=== PATIENT | female | born 1950 | race Caucasian/White ===

== ENCOUNTER → 2017-03-16 | Outpatient (CLI) | payer OTHER ==
[2017-03-16 13:30] LABS: BASOPHILS % (AUTO) 0.8 % (0.2-1.0); EOSINOPHILS # (AUTO) 0.1 x10^3/uL (0.0-0.2); EOSINOPHILS % (AUTO) 1.1 % (0.9-2.9); HEMOGLOBIN 13.1 g/dL (12.0-16.0); LYMPHOCYTES # (AUTO) 1.6 X10^3/uL (1.3-2.9); LYMPHOCYTES % (AUTO) 29.5 % (21.0-51.0); MEAN CORPUSCULAR HEMOGLOBIN 31.1 pg (27.0-34.0); MEAN CORPUSCULAR HGB CONC 33.6 g/dL (33.0-35.0); MEAN CORPUSCULAR VOLUME 92.4 fL (80.0-100.0); MEAN PLATELET VOLUME 8.3 fL (7.4-11.0); MONOCYTES # (AUTO) 0.4 x10^3/uL (0.3-0.8); NEUTROPHILS # (AUTO) 3.3 x10^3/uL (2.2-4.8); NEUTROPHILS % (AUTO) 61.6 % (42.0-75.0); PLATELET COUNT 200 X10^3/uL (150.0-450.0); RED BLOOD COUNT 4.22 X10^6/uL (3.5-5.4); WHITE BLOOD COUNT 5.4 X10^3/uL (3.6-10.0)
[2017-03-16 13:32] LABS: BILIRUBIN,URINE NEGATIVE (NEGATIVE); BLOOD/HEMOGLOBIN,URINE 1+ (NEGATIVE); GLUCOSE, URINE NEGATIVE (NEGATIVE); KETONES,URINE NEGATIVE (NEGATIVE); LEUKOCYTE ESTERASE ,URINE NEGATIVE (NEGATIVE); NITRITES,URINE NEGATIVE (NEGATIVE); PROTEIN,URINE 1+ (NEGATIVE); UROBILINOGEN,URINE NORMAL (NORMAL)
[2017-03-16 13:43] LABS: ALANINE AMINOTRANSFERASE 16 Units/L (12-78); ALBUMIN 3.5 g/dL (3.4-5.0); ALKALINE PHOSPHATASE 75 Units/L (46-116); ASPARTATE AMINO TRANSFERASE 26 Units/L (15-37); BLOOD UREA NITROGEN 17 mg/dL (7-18); CALCIUM 9.4 mg/dL (8.5-10.1); CARBON DIOXIDE 32.7 mmol/L (21-32); CHLORIDE 106 mmol/L (98-107); CREATININE 0.75 mg/dL (0.55-1.02); GLUCOSE 93 mg/dL (65-99); SODIUM 142 mmol/L (136-145); TOTAL PROTEIN 7.2 g/dL (6.4-8.2); eGFR BLACK RACES > 60 (>60); eGFR NON BLACK RACES > 60 (>60)
[2017-03-16 13:49] LABS: APPEARANCE,URINE CLEAR (CLEAR); BACTERIA,URINE TRACE /HPF (NEGATIVE); COLOR,URINE YELLOW (YELLOW); RBC,URINE RARE /HPF (NEGATIVE); SQUAMOUS EPITHELIAL CELL,UR NUMEROUS /HPF (NEGATIVE)
== END ==
LOC: LAB 12:59
PROVIDERS: ATTEND Internal Medicine Rheumatology
DX: J32.8 Other chronic sinusitis (principal); Z79.51 Long term (current) use of inhaled steroids; M79.1 Myalgia; J32.0 Chronic maxillary sinusitis; M31.30 Wegener's granulomatosis without renal involvement; F95.8 Other tic disorders
CPT/HCPCS: 36415; 80053; 81001; 83516; 85025; 86021; 86140

== ENCOUNTER → 2017-07-05 | Outpatient (CLI) | payer OTHER ==
[2017-07-05 11:36] LABS: ALANINE AMINOTRANSFERASE 15 Units/L (12-78); ALBUMIN 3.7 g/dL (3.4-5.0); ALKALINE PHOSPHATASE 73 Units/L (46-116); ASPARTATE AMINO TRANSFERASE 26 Units/L (15-37); BLOOD UREA NITROGEN 18 mg/dL (7-18); CALCIUM 9.3 mg/dL (8.5-10.1); CARBON DIOXIDE 31.7 mmol/L (21-32); CHLORIDE 104 mmol/L (98-107); SODIUM 141 mmol/L (136-145); TOTAL PROTEIN 7.1 g/dL (6.4-8.2); eGFR BLACK RACES > 60 (>60); eGFR NON BLACK RACES > 60 (>60)
[2017-07-05 11:41] LABS: BASOPHILS % (AUTO) 0.8 % (0.2-1.0); EOSINOPHILS # (AUTO) 0.1 x10^3/uL (0.0-0.2); EOSINOPHILS % (AUTO) 1.4 % (0.9-2.9); HEMATOCRIT 39.9 % (36.0-47.0); HEMOGLOBIN 13.2 g/dL (12.0-16.0); LYMPHOCYTES # (AUTO) 1.2 X10^3/uL (1.3-2.9); LYMPHOCYTES % (AUTO) 23.3 % (21.0-51.0); MEAN CORPUSCULAR HEMOGLOBIN 30.2 pg (27.0-34.0); MEAN CORPUSCULAR HGB CONC 33.2 g/dL (33.0-35.0); MEAN CORPUSCULAR VOLUME 91.1 fL (80.0-100.0); MONOCYTES # (AUTO) 0.7 x10^3/uL (0.3-0.8); MONOCYTES % (AUTO) 12.6 % (0.0-13.0); NEUTROPHILS # (AUTO) 3.2 x10^3/uL (2.2-4.8); NEUTROPHILS % (AUTO) 61.9 % (42.0-75.0); PLATELET COUNT 194 X10^3/uL (150.0-450.0); RED BLOOD COUNT 4.38 X10^6/uL (3.5-5.4); RED CELL DISTRIBUTION WIDTH 14.1 % (11.6-16.5); WHITE BLOOD COUNT 5.2 X10^3/uL (3.6-10.0)
== END ==
LOC: LAB 10:44
PROVIDERS: ATTEND Internal Medicine Rheumatology
DX: G57.01 Lesion of sciatic nerve, right lower limb (principal); F95.8 Other tic disorders; M31.30 Wegener's granulomatosis without renal involvement; M79.1 Myalgia; Z79.51 Long term (current) use of inhaled steroids
CPT/HCPCS: 36415; 80053; 83516; 85025; 86021; 86140

== ENCOUNTER 2021-02-04 10:14 | Observation (INO) ==
[2021-02-04] MEDS ORDERED: TUSSIONEX PENNKINETIC SUSP PO PRN (12:19)
[2021-02-04] MEDS ORDERED: NS 1/2 1000 ML IV 1,000 ML IV ONE (12:29)
[2021-02-04] MEDS: LEVAQUIN PREMIX IV 500 MG 500 MG/100 ML BAG IV SCH (12:46)
[2021-02-04] MEDS: VSL#3 PO SCH (12:46)
[2021-02-04] MEDS: NS 1/2 1000 ML IV 1,000 ML IV SCH (12:46)
[2021-02-04] MEDS: ROBITUSSIN DM PO SCH ×4 (12:46→20:52)
[2021-02-04] MEDS ORDERED: XANAX PO PRN (13:07)
[2021-02-04 13:12] LABS: BASOPHILS % (AUTO) 0.3 % (0.2-1.0); EOSINOPHILS # (AUTO) 0.1 x10^3/uL (0.0-0.2); EOSINOPHILS % (AUTO) 1.2 % (0.9-2.9); HEMATOCRIT 39.9 % (36.0-47.0); HEMOGLOBIN 13.4 g/dL (12.0-16.0); LYMPHOCYTES # (AUTO) 1.3 X10^3/uL (1.3-2.9); LYMPHOCYTES % (AUTO) 13.2 % (21.0-51.0); MEAN CORPUSCULAR HEMOGLOBIN 29.9 pg (27.0-34.0); MEAN CORPUSCULAR HGB CONC 33.5 g/dL (33.0-35.0); MEAN CORPUSCULAR VOLUME 89.4 fL (80.0-100.0); MEAN PLATELET VOLUME 7.9 fL (7.4-11.0); MONOCYTES % (AUTO) 10.4 % (0.0-13.0); NEUTROPHILS # (AUTO) 7.3 x10^3/uL (2.2-4.8); NEUTROPHILS % (AUTO) 74.9 % (42.0-75.0); PLATELET COUNT 310 X10^3/uL (150.0-450.0); RED BLOOD COUNT 4.47 X10^6/uL (3.5-5.4); RED CELL DISTRIBUTION WIDTH 14.7 % (11.6-16.5); WHITE BLOOD COUNT 9.7 X10^3/uL (3.6-10.0)
[2021-02-04 13:21] VITALS: BMI 17.6
[2021-02-04 13:23] LABS: ALANINE AMINOTRANSFERASE 18 Units/L (12-78); ALBUMIN 3.3 g/dL (3.4-5.0); ALKALINE PHOSPHATASE 114 Units/L (46-116); ASPARTATE AMINO TRANSFERASE 26 Units/L (15-37); BLOOD UREA NITROGEN 9 mg/dL (7-18); CALCIUM 9.5 mg/dL (8.5-10.1); CARBON DIOXIDE 30.4 mmol/L (21-32); CHLORIDE 106 mmol/L (98-107); COR CA(FOR HYPOALB) 10.1 mg/dL (8.5-10.1); CREATININE 0.61 mg/dL (0.55-1.02); SODIUM 143 mmol/L (136-145); TOTAL PROTEIN 7.2 g/dL (6.4-8.2); eGFR NON BLACK RACES > 60 (>60)
[2021-02-04] MEDS: DUONEB 0.5 MG/3 MG (3 mL) NEB SCH ×3 (14:48→20:56)
--- NOTE | 2021-02-04 14:48 | RAD ---
HISTORYPNEUMONIA.STUDYCHEST x-ray, PA/LAT ADULTCOMPARISONX-ray 11/22/2020FINDINGSCavitary lesion in the left lower lobe has increased in size since prior study. New rounded opacity is seen in the right infrahilar region that could be due to the same process. Cavitary lesion in the left lung apex is probably similar to prior study. Findings could be due to cavitary pneumonia/lung abscesses. Fungal infection or tuberculosis should be given consideration as should cavitary neoplasia.Heart is normal in size. No pneumothorax or pleural effusion is seen.IMPRESSIONProbable mild worsening of cavitary lung disease.Electronically signed by: Michael Badillo (Feb 04, 2021 14:46:17)
[2021-02-04] MEDS ORDERED: SALINE 3% 15 ML NEB TX NEB ONE (14:54)
[2021-02-04] MEDS ORDERED: SALINE 3% 15 ML NEB TX ONE (15:20)
[2021-02-04] MEDS ORDERED: XANAX PO ONE (15:42)
[2021-02-04] MEDS ORDERED: POTASSIUM CHL 40 MEQ/NS 0.45% 500 ML IV PRN (18:59)
[2021-02-04] MEDS ORDERED: K-RIDER 10 MEQ/NS 100 ML 10 MEQ/100 ML BAG IV PRN (18:59)
[2021-02-04] MEDS ORDERED: MICRO K EXTEN CAP 10 MEQ PO PRN (18:59)
[2021-02-04] MEDS ORDERED: POTASSIUM CHLORIDE LIQ 20 MEQ UDC PO PRN (18:59)
[2021-02-04] MEDS ORDERED: KLOR-CON PO PRN (18:59)
[2021-02-04] MEDS ORDERED: POTASSIUM CHL 60 MEQ/NS 0.45% 500 ML IV PRN (18:59)
[2021-02-04] MEDS ORDERED: K-DUR TAB 20 MEQ PO PRN (18:59)
[2021-02-04] MEDS ORDERED: SEROquel TAB 25 mg PO ONE (20:17)
[2021-02-04] MEDS ORDERED: PERCOCET TAB 5/325 MG PO ONE (20:18)
[2021-02-04] MEDS ORDERED: SINEMET (PLAIN) 25/100 MG PO ONE (20:18)
[2021-02-04] MEDS ORDERED: ULTRAM PO PRN (20:49)
[2021-02-04] MEDS ORDERED: PERCOCET TAB 5/325 MG PO PRN (20:49)
--- NOTE | 2021-02-04 20:49 | DR.H&P ---
H&P - History & Physical for Day of: H&P Date: 02/04/21 - Chief Complaint Chief Complaint: COUGH, SOB, WEAKNESS - History of Present Illness History of Present Illness: IS A 70 YEAR OLD PATIENT OF OURS. SHE PRESENTED TO THE OFFICE WITH COMPLAINTS OF NON-PRODUCTIVE COUGH, SHORTNESS OF BREATH, AND GENERALIZED WEAKNESS. SHE REPORTS THAT SYMPTOMS STARTED ABOUT A WEEK AGO AND HAVE PROGRESSIVELY GOTTEN WORSE. PATIENT HAS A PMH OF WAGNERS DISEASE FOR WHICH SHE IS AT INCREASED RISK OF PNEUMONIA. SHE HAS TAKEN CHEMOTHERAPY FOR SAID DISEASE. SHE WAS ADMITTED TO THE HOSPITAL FOR FURTHER EVALUATION AND TREATMENT OF PNEUMONIA AND GENERALIZED WEAKNESS. ON ARRIVAL TO THE HOSPITAL, VITALS WERE 98.5-88-18-96%-141/82. LABS WERE OBTAINED. POTASSIUM 3.4, ALBUMIN 3.3. OTHERWISE, SHE IS HEMODYNAMICALLY STABLE. COVID 19, INFLUENZA, AND RSV NEGATIVE. BLOOD CULTURES WERE SET UP. A CHEST XRAY WAS OBTAINED AND REVEALED: Cavitary lesion in the left lower lobe has increased in size since prior study. New rounded opacity is seen in the right infrahilar region that could be due to the same process. Cavitary lesion in the left lung apex is probably similar to prior study. Findings could be due to cavitary pneumonia/lung abscesses. Fungal infection or tuberculosis should be given consideration as should cavitary neoplasia. SHE WAS STARTED ON 1/2NS AT 75 ML/HR, LEVAQUIN 500MG IV DAILY, DUONEBS QID, TUSSIONEX 5ML PO Q12H PRN, ROBITUSSIN DM 10ML PO QID, VSL #3 2 CAPS PO DAILY, XANAX 0.25MG PO BID PRN. WE WILL REVIEW HER HOME MEDICATIONS WHEN THEY ARE AVAILABLE TO US. OTHERWISE, WE PLAN OT FOLLOW UP WITH AM LABS AND CONTINUE TO MONITOR. TIME SPENT ON CLINICAL ASSESSMENT, REVIEWING LABS AND IMAGING, DECISION MAKING, AND DOCUMENTATION GREATER THAN 75 MINUTES. - Past Medical History Past Medical History: Anxiety Additional Medical History: HARPER'S DISEASE. - Past Surgical History Surgical History: Hysterectomy - Family History Family Medical History: Coronary Artery Disease, Hypertension - Social History Does patient currently use any type of tobacco product: No Have you used tobacco products in the last 12 months: No Does any household member use tobacco: No Alcohol Use: None Drug Use: None - Medications Home Medications: No Known Drug Allergies Allergy (Verified 11/18/20 10:53) CONTINUE taking the following medications gabapentin 300 mg PO HS 02/04/21 [History] montelukast 10 mg PO DAILY 02/04/21 [History] oxycodone-acetaminophen 1 tab PO QID PRN 02/04/21 [History] rivaroxaban [Xarelto] 10 mg PO DAILY 02/04/21 [History] tramadol 50 mg PO TID PRN 02/04/21 [History] voriconazole 200 mg PO BID 02/04/21 [History] - Review of Systems Constitutional: Weakness Eyes: No Symptoms Reported ENT: No Symptoms Reported Respiratory: See HPI, Cough, Shortness of Breath, SOB with Excertion Cardiovascular: No Symptoms Reported Gastrointestinal: No Symptoms Reported Genitourinary: No Symptoms Reported Musculoskeletal: No Symptoms Reported Skin: No Symptoms Reported Neurological: Weakness - Physical Exam Vital Signs: Temperature 98.5 F Pulse Rate [Left Brachial] 95 Pulse Rate 108 Respiratory Rate 18 Blood Pressure [Left Arm] 134/60 Blood Pressure 154/67 O2 Sat by Pulse Oximetry 93 Oriented: Normal Eyes: Normal Ear: Normal Nose: Normal Throat: Normal Respiratory: Diminished Throughout, Rhonchi Throughout Cardiovascular: Normal : Normal Auscultation: Bowel Sounds: Normal Palpation: Normal Tenderness: Normal Skin: Normal Musculoskeletal: Normal Psychiatric: Normal Mood Description: Calm Affect: Normal Speech Pattern: Clear - Assessment/Plan (1) Pneumonia Qualifiers: Pneumonia type: due to unspecified organism Laterality: left Lung location: lower lobe of lung Qualified Code(s): J18.9 - Pneumonia, unspecified organism Status: Acute Plan: ADMIT, 1/2NS AT 75 ML/HR, LEVAQUIN 500MG IV DAILY, DUONEBS QID, TUSSIONEX 5ML PO Q12H PRN, ROBITUSSIN DM 10ML PO QID, VSL #3 2 CAPS PO DAILY, XANAX 0.25MG PO BID PRN. (2) Hilton's granulomatosis Qualifiers: Granulomatosis renal involvement: unspecified whether renal involvement Qualified Code(s): M31.30 - Hilton's granulomatosis without renal involvement Status: Acute - Allergies Allergies/Adverse Reactions: Allergies Allergy/AdvReac Type Severity Reaction Status Date / Time No Known Drug Allergies Allergy Verified 11/18/20 10:53
[2021-02-04] MEDS ORDERED: NEURONTIN CAP 300 MG PO SCH (21:00)
[2021-02-04] MEDS ORDERED: SINGULAIR TAB 10 MG PO SCH (21:00)
[2021-02-04] MEDS: VORICONAZOLE 200 MG PO SCH (21:45)
[2021-02-05] MEDS ORDERED: NS 1/2 1000 ML IV 1,000 ML IV ONE (03:10)
[2021-02-05] MEDS: NS 1/2 1000 ML IV 1,000 ML IV SCH (03:15)
[2021-02-05 05:21] LABS: BASOPHILS # (AUTO) 0.1 X10^3/uL (0.0-0.1); BASOPHILS % (AUTO) 0.9 % (0.2-1.0); EOSINOPHILS # (AUTO) 0.1 x10^3/uL (0.0-0.2); EOSINOPHILS % (AUTO) 1.6 % (0.9-2.9); HEMATOCRIT 36.1 % (36.0-47.0); HEMOGLOBIN 12.1 g/dL (12.0-16.0); LYMPHOCYTES # (AUTO) 1.7 X10^3/uL (1.3-2.9); LYMPHOCYTES % (AUTO) 27.9 % (21.0-51.0); MEAN CORPUSCULAR HEMOGLOBIN 29.7 pg (27.0-34.0); MEAN CORPUSCULAR HGB CONC 33.5 g/dL (33.0-35.0); MEAN CORPUSCULAR VOLUME 88.7 fL (80.0-100.0); MEAN PLATELET VOLUME 7.7 fL (7.4-11.0); MONOCYTES # (AUTO) 0.7 x10^3/uL (0.3-0.8); MONOCYTES % (AUTO) 11.2 % (0.0-13.0); NEUTROPHILS # (AUTO) 3.5 x10^3/uL (2.2-4.8); NEUTROPHILS % (AUTO) 58.4 % (42.0-75.0); PLATELET COUNT 257 X10^3/uL (150.0-450.0); RED BLOOD COUNT 4.07 X10^6/uL (3.5-5.4); RED CELL DISTRIBUTION WIDTH 14.2 % (11.6-16.5); WHITE BLOOD COUNT 6.1 X10^3/uL (3.6-10.0)
[2021-02-05] MEDS: SINEMET (PLAIN) 25/100 MG PO SCH ×2 (05:35→12:42)
[2021-02-05 05:38] LABS: BLOOD UREA NITROGEN 8 mg/dL (7-18); CARBON DIOXIDE 27.7 mmol/L (21-32); CHLORIDE 109 mmol/L (98-107); CREATININE 0.54 mg/dL (0.55-1.02); SODIUM 144 mmol/L (136-145); eGFR NON BLACK RACES > 60 (>60)
[2021-02-05 05:39] LABS: ALANINE AMINOTRANSFERASE 9 Units/L (12-78); ALBUMIN 2.7 g/dL (3.4-5.0); ALKALINE PHOSPHATASE 95 Units/L (46-116); ASPARTATE AMINO TRANSFERASE 22 Units/L (15-37); CALCIUM 8.5 mg/dL (8.5-10.1); COR CA(FOR HYPOALB) 9.5 mg/dL (8.5-10.1); TOTAL PROTEIN 6.1 g/dL (6.4-8.2)
--- NOTE | 2021-02-05 06:26 | RAD ---
HISTORYShortness of breathSTUDYChest AP [id number]/20/2021FINDINGSThe heart is within normal limits in size. The regan are normal. The lungs are well inflated. There has been an increase in size of the right basilar cavitary lesion from 2.5 x 2.5 cm to 2.7 x 2.8 cm when compared to the prior examination. Left lower lobe cavitary lesion is unchanged. Left apical cavitary lesion is unchanged. No pleural effusions are identified. Bony thorax is unremarkable.IMPRESSIONMultiple cavitary lesions increased in size in the right lower lobe and unchanged left apex and left lower lobe. Possible etiologies include cavitary pneumonia, lung abscesses, TB, fungal disease. Neoplasm is not entirely excluded.Electronically signed by: VASILE HUANG (Feb 05, 2021 06:25:17)
[2021-02-05] MEDS ORDERED: XARELTO PO SCH (09:00)
[2021-02-05] MEDS ORDERED: SEROquel TAB 25 mg PO SCH (09:00)
[2021-02-05] MEDS: DUONEB 0.5 MG/3 MG (3 mL) NEB SCH ×2 (09:10→13:40)
[2021-02-05] MEDS: LEVAQUIN PREMIX IV 500 MG 500 MG/100 ML BAG IV SCH (09:25)
[2021-02-05] MEDS: ROBITUSSIN DM PO SCH ×2 (09:26→12:42)
[2021-02-05] MEDS: VORICONAZOLE 200 MG PO SCH (09:27)
[2021-02-05] MEDS: VSL#3 PO SCH (09:27)
[2021-02-05 11:45] VITALS: BP 144/73
== END 2021-02-05 16:10 | disposition home or self-care (01) ==
LOC: OBS → MED/SURG 12:17
PROVIDERS: ADMIT Internal Medicine; ATTEND Internal Medicine
DX: R06.02 Shortness of breath; J18.8 Other pneumonia, unspecified organism; R53.1 Weakness; M31.30 Wegener's granulomatosis without renal involvement; Z20.822 Contact with and (suspected) exposure to COVID-19

== ENCOUNTER 2023-04-21 10:51 | Observation (INO) ==
[2023-04-21 11:56] LABS: BASOPHILS % (AUTO) 0.9 % (0.2-1.0); EOSINOPHILS % (AUTO) 0.9 % (0.9-2.9); HEMATOCRIT 37.9 % (36.0-47.0); HEMOGLOBIN 12.7 g/dL (12.0-16.0); LYMPHOCYTES # (AUTO) 1.2 X10^3/uL (1.3-2.9); LYMPHOCYTES % (AUTO) 28.5 % (21.0-51.0); MEAN CORPUSCULAR HEMOGLOBIN 30.6 pg (27.0-34.0); MEAN CORPUSCULAR HGB CONC 33.6 g/dL (33.0-35.0); MEAN PLATELET VOLUME 7.5 fL (7.4-11.0); MONOCYTES # (AUTO) 0.4 x10^3/uL (0.3-0.8); MONOCYTES % (AUTO) 9.5 % (0.0-13.0); NEUTROPHILS # (AUTO) 2.6 x10^3/uL (2.2-4.8); NEUTROPHILS % (AUTO) 60.2 % (42.0-75.0); PLATELET COUNT 177 X10^3/uL (150.0-450.0); RED BLOOD COUNT 4.16 X10^6/uL (3.5-5.4); RED CELL DISTRIBUTION WIDTH 13.6 % (11.6-16.5); WHITE BLOOD COUNT 4.3 X10^3/uL (3.6-10.0)
[2023-04-21 12:16] LABS: ALANINE AMINOTRANSFERASE 27 Units/L (12-78); ALBUMIN 3.6 g/dL (3.4-5.0); ALKALINE PHOSPHATASE 65 Units/L (46-116); ASPARTATE AMINO TRANSFERASE 31 Units/L (15-37); BLOOD UREA NITROGEN 7 mg/dL (7-18); CALCIUM 8.9 mg/dL (8.5-10.1); CARBON DIOXIDE 31.2 mmol/L (21-32); CHLORIDE 105 mmol/L (98-107); CREATININE 0.62 mg/dL (0.55-1.02); GLUCOSE 99 mg/dL (65-99); SODIUM 142 mmol/L (136-145); TOTAL PROTEIN 6.4 g/dL (6.4-8.2); eGFR NON BLACK RACES > 60 (>60)
[2023-04-21 12:37] VITALS: BMI 18.9
[2023-04-21] MEDS ORDERED: PERCOCET TAB 5/325 MG PO PRN (13:21)
[2023-04-21] MEDS ORDERED: PHENERGAN TAB 25 MG PO PRN (13:21)
[2023-04-21] MEDS ORDERED: ULTRAM PO PRN (13:21)
[2023-04-21] MEDS: NS 1,000 ML IV 1,000 ML IV SCH (13:30)
[2023-04-21] MEDS ORDERED: XANAX PO PRN (13:31)
[2023-04-21] MEDS ORDERED: NS 100 ML IV 100 ML ONE (13:56)
[2023-04-21] MEDS: MIRALAX POWDER (1 DOSE 17 G) PO SCH (16:14)
[2023-04-21] MEDS: MILK OF MAGNESIA PO SCH ×3 (16:14→20:18)
[2023-04-21] MEDS: COLACE CAP 100 MG PO SCH ×2 (16:14→20:19)
[2023-04-21 17:38] LABS: BILIRUBIN,URINE NEGATIVE (NEGATIVE); BLOOD/HEMOGLOBIN,URINE NEGATIVE (NEGATIVE); GLUCOSE, URINE NEGATIVE (NEGATIVE); KETONES,URINE NEGATIVE (NEGATIVE); LEUKOCYTE ESTERASE ,URINE NEGATIVE (NEGATIVE); NITRITES,URINE NEGATIVE (NEGATIVE); PROTEIN,URINE 2+ (NEGATIVE); UROBILINOGEN,URINE NORMAL (NORMAL)
[2023-04-21 17:45] LABS: APPEARANCE,URINE CLEAR (CLEAR); COLOR,URINE PALE YELLOW (YELLOW)
--- NOTE | 2023-04-21 17:57 | CT ---
EXAM:ABDCMEN/PELVIS WITH CONHISTORY:CONSTIPATION;COMPARISON:None available.TECHNIQUE:Multiple axial images of the abdomen and pelvis were obtained from the lung bases to the pubic symphysis following the administration of IV contrast. Dose reduction techniques including Automated Exposure Control (AEC) and adjustment of mA and kV were utlized.FINDINGS:The heart is normal in size. There is no pericardial effusion. Scarring of the lung bases.Liver and spleen are normal in size, enhancement characteristics and contour. No focal lesions. The portal vein is patent. No ductal dilitation. Gallbladder is present. No calcified gallstones or gallbladder wall thickening. The pancreas is unremarkable. Adrenal glands are normal. Kidneys enhance symmetrically without hydronephrosis or nephrolithiasis.Inflammatory change of the rectosigmoid colon. No abnormal appearing mesenteric or retroperitoneal lymph nodes. . No free fluid or fluid collections.The bladder is normal in appearance. Uterus appears to have been removed. No free fluid or abnormal pelvic lymph nodes.No aggressive osseous lesions.IMPRESSION:1.Probable proctitis.THIS IS AN ELECTRONICALLY VERIFIED FINAL [id number]/21/2023 5:54 PM - Electronically signed by Osbaldo Bojorquez MD
[2023-04-21 18:14] LABS: RBC,URINE 0-2 /HPF (0-3); SQUAMOUS EPITHELIAL CELL,UR FEW /HPF (NEGATIVE)
[2023-04-21 18:15] LABS: BACTERIA,URINE TRACE /HPF (NEGATIVE)
[2023-04-21] MEDS: SEROquel TAB 25 mg PO SCH (20:19)
[2023-04-21] MEDS: COZAAR PO SCH (20:19)
--- NOTE | 2023-04-22 05:15 | RAD ---
HISTORYABDOMINAL PAIN, CONSTIPATION Relevant Clinical InformationSTUDYKUBCOMPARISONNone br.br.br pattern. There is a mild amount of fecal material throughout the colon. No pathological soft tissue mass or calcification can be observed. The bony structures are grossly intact. The lung bases are clearIMPRESSIONNo evidence for acute abdominal pathology identified.Electronically signed by: Rommel Lee (Apr 22, 2023 05:14:40)
[2023-04-22 05:16] LABS: BASOPHILS % (AUTO) 0.8 % (0.2-1.0); EOSINOPHILS # (AUTO) 0.1 x10^3/uL (0.0-0.2); EOSINOPHILS % (AUTO) 1.8 % (0.9-2.9); HEMATOCRIT 37.1 % (36.0-47.0); HEMOGLOBIN 12.6 g/dL (12.0-16.0); LYMPHOCYTES # (AUTO) 1.9 X10^3/uL (1.3-2.9); LYMPHOCYTES % (AUTO) 39.2 % (21.0-51.0); MEAN CORPUSCULAR HEMOGLOBIN 30.8 pg (27.0-34.0); MEAN CORPUSCULAR VOLUME 90.5 fL (80.0-100.0); MONOCYTES # (AUTO) 0.5 x10^3/uL (0.3-0.8); MONOCYTES % (AUTO) 9.3 % (0.0-13.0); NEUTROPHILS # (AUTO) 2.4 x10^3/uL (2.2-4.8); NEUTROPHILS % (AUTO) 48.9 % (42.0-75.0); PLATELET COUNT 189 X10^3/uL (150.0-450.0); RED CELL DISTRIBUTION WIDTH 13.8 % (11.6-16.5); WHITE BLOOD COUNT 4.9 X10^3/uL (3.6-10.0)
[2023-04-22 05:25] LABS: ALANINE AMINOTRANSFERASE 24 Units/L (12-78); ALBUMIN 3.3 g/dL (3.4-5.0); ALKALINE PHOSPHATASE 62 Units/L (46-116); ASPARTATE AMINO TRANSFERASE 27 Units/L (15-37); BLOOD UREA NITROGEN 6 mg/dL (7-18); CALCIUM 8.5 mg/dL (8.5-10.1); CARBON DIOXIDE 33.8 mmol/L (21-32); CHLORIDE 107 mmol/L (98-107); COR CA(FOR HYPOALB) 9.1 mg/dL (8.5-10.1); CREATININE 0.59 mg/dL (0.55-1.02); GLUCOSE 80 mg/dL (65-99); POTASSIUM 3.9 mmol/L (3.5-5.1); SODIUM 143 mmol/L (136-145); eGFR NON BLACK RACES > 60 (>60)
[2023-04-22 08:00] VITALS: RESP 20; O2SAT 95
[2023-04-22] MEDS ORDERED: NORVASC TAB 2.5 MG PO SCH (09:00)
[2023-04-22] MEDS ORDERED: MIRAPEX TAB 0.25 MG PO SCH (09:00)
[2023-04-22] MEDS ORDERED: NORVASC TAB 2.5 MG ONE (09:09)
[2023-04-22] MEDS: COZAAR PO SCH (09:33)
[2023-04-22] MEDS: MILK OF MAGNESIA PO SCH ×2 (09:33→14:00)
[2023-04-22] MEDS: COLACE CAP 100 MG PO SCH (09:33)
[2023-04-22] MEDS: MIRALAX POWDER (1 DOSE 17 G) PO SCH (09:33)
[2023-04-22] MEDS: SEROquel TAB 25 mg PO SCH (09:35)
--- NOTE | 2023-04-22 11:04 | DR.CARTERS ---
Short Stay Summary - Admission Date Date of Admission: 04/21/23 - Discharge Date Discharge Date: 04/22/23 - Admission Diagnoses (1) Proctitis Status: Acute (2) Abdominal pain Status: Acute (3) Constipation Status: Acute (4) COPD (chronic obstructive pulmonary disease) Status: Chronic (5) Generalized anxiety disorder Status: Chronic (6) Essential hypertension Status: Chronic - Hospital Course Vitals: Vital Signs Temperature 97.5 F 04/22/23 07:59 Temperature 98.4 F 04/22/23 04:00 Pulse Rate [Right Brachial] 55 04/22/23 07:59 Pulse Rate [Right Brachial] 70 04/22/23 04:00 Respiratory Rate 20 04/22/23 07:59 Respiratory Rate 18 04/22/23 04:00 Blood Pressure [Right Arm] 138/60 04/22/23 07:59 Blood Pressure [Right Arm] 136/69 04/22/23 04:00 - Discharge Medications Discharge Medications: Home Medication List fluticasone fur. 100 mcg-umeclid 62.5 mcg-vilant 25 mcg inhalat.powder (Trelegy Ellipta) 1 inh inhalation DAILY 04/21/23 [History] pramipexole 0.125 mg tablet 0.125 mg PO DAILY 04/21/23 [History] promethazine 25 mg tablet 25 mg PO Q8H PRN nausea 04/21/23 [History] ciprofloxacin HCl 750 mg tablet 750 mg PO BID #28 tabs 04/22/23 [Rx] Prescriptions: ciprofloxacin HCl Agustin Paz - Hospital Course Hospital Course: IS A 72 YEAR OLD PATIENT OF OURS. SHE WAS A DIRECT ADMISSION, OBSERVATION STATUS, FOR FURTHER EVALUATION AND TREATMENT OF ABDOMINAL PAIN AND CONSTIPATION. APPARETNLY, HER SYMPTOMS STARTED ON WEEK PIROR TO ADMISSION. SHE DESCRIBED PAIN PRESSURE AND CRAMPING. PAIN IS DIFFUSE. SHE RATED PAIN A 6/10 ON ADMISSION. SHE ADMITTED TO THE USE OF STOOL SOFTENERS, LAXATIVES, MAG CITRATE, AND TWO FLEETS ENEMAS WITHOUT RELIEF OR IMPROVEMENT IN SYMPTOMS. ON ADMISSION, HER VITALS WERE: 97.6-58-20-96%-142/72. LABS WERE OBTAINED. WBC 4.3, RBC 4.16, HGB 12.7, HCT 37.9, PLT COUNT 177, SODIUM 142, POTASSIUM 4.0, CHLORIDE 105, CARBON DIOXIDE 31.2, BUN 7, CREATININE 0.62, GLUCOSE 99, CALCIUM 8.9, TOTAL BILI 0.40, AST 31, ALT 27, ALK PHOS 65, TOTAL PROTEIN 6.4, ALBUMIN 3.6. A URINALYSIS WAS OBTAINED AND REVEALED: WBC 0-2, RBC 0-2, BACTERIA TRACE, NITRITE NEGATIVE. A KUB WAS OBTAINED AND REVEALED: There is a mild amount of fecal material throughout the colon. No pathological soft tissue mass or calcification can be observed. The bony structures are grossly intact. The lung bases are clear. No evidence for acute abdominal pathology identified. ON ADMISSION, SHE WAS STARTED ON NORMAL SALINE AT KVO, MILK OF MAGNESIA 15ML QID, MIRALAX 17G DAILY, COLACE 100MG BID. HER HOME MEDICATIONS OF XANAX, NORVASX, COLACE, COZAAR, PERCOCET, MIRAPEX, PHENERGAN, SEROQUEL, AND ULTRAM WERE RESUMED. WE PLANNED TO OBTAIN AN ABDOMEN/PELVIS CT WITH CONTRAST. OTHERWISE, WE PLANNED TO FOLLOW UP WITH AM LABS AND CONTINUE TO MONITOR. ON THE MORNING FOLLOWING ADMISSION, PATIENT IS ALERT AND ORIENTED, LYING IN BED ON MORNING ROUNDS. SHE CONTINUES TO REPORT MILD ABDOMINAL PAIN, BUT DOES ADMIT TO SOME IMPROVEMENT SINCE ADMISSION. SHE ADMITS TO HAVING A BOWEL MOVEMENT EARLY THIS MORNING. OTHERWISE, SHE HAD AN UNEVENTFUL NIGHT. ON EXAMINATION, HEART IS REGULAR IN RATE AND RHYTHM. BILATERAL LUNGS ARE NOTED WITH DIMINISHED LUNG SOUNDS THROUGHOUT. ABDOMEN IS ROUND, SOFT, AND NOTED WITH MILD, DIFFUSE TENDERNESS. NORMAL BOWEL SOUNDS NOTED IN ALL QUADRANTS. GOOD RANGE OF MOTION NOTED TO UPPER AND LOWER EXTREMITIES WITH NO EDEMA NOTED. HER VITALS THIS MORNING ARE: 97.5-55-20-95%-138/60. LABS WERE OBTAINED. WBC 4.9, RBC 4.10, HGB 12.6, HCT 37.1, PLT COUNT 189, SODIUM 143, POTASSIUM 3.9, CHLORIDE 107, CARBON DIOXIDE 33.8, BUN 6, CREATININE 0.59, GLUCOSE 80, CALCIUM 8.5, TOTAL BILI 0.40, AST 27, ALT 24, ALK PHOS 62, TOTAL PROTEIN 6.0, ALBUMIN 3.3. AN ABDOMEN/PELVIS CT WITH CONTRAST WAS OBTAINED YESTERDAY AND REVEALED PROBABLE PROCTITIS. PATIENT REQUESTED DISCHARGE HOME. WE PLANNED FOR DISCHARGE. INSTRUCTIONS FOR MEDICATIONS AND FOLLOW UP WERE DISCUSSED WITH PATIENT. SHE WAS GIVEN A NEW PRESCRIPTION FOR CIPRO 750MG PO BID X 14 DAYS. SHE WAS INSTRUCTED TO CONTINUE THE MILK OF MAGNESIA, MIRALAX, AND COLACE THAT SHE WAS PRESCRIBED IN THE OFFICE. SHE WAS ALSO INSTRUCTED TO CONTINUE HER REGULAR MEDICATIONS. SHE WAS ADVISED TO FOLLOW UP IN THE OFFICE ON 05/03/23 AT 10:40AM FOR FOLLOW-UP. SHE VERBALIZED UNDERSTANDING OF ALL ORDERS. PATIENT WAS DISCHARGED HOME WITH FAMILY IN STABLE CONDITION. TIME SPENT ON CLINICAL ASSESSMENT, REVIEWING LABS AND IMAGING, DECISION MAKING, DISCHARGE INSTRUCTIONS, PREPARING DISCHARGE PAPERS, AND D OCUMENTATION GREATER THAN 75 MINUTES. - Discharge Plan Disposition: HOME, SELF-CARE Condition: Stable Prescriptions: ciprofloxacin HCl 750 mg PO BID #28 tabs - Follow up/Referrals Follow up/Referrals: Agustin Paz [Primary Care Provider] - 05/03/23 10:40 am - Instructions Instructions: Abdominal Pain, Adult, Constipation, Adult, [id number] Additional Instructions: DIET TOLERATED. ACTIVITY TOLERATED. CONTINUE MILK OF MAGNESIA, MIRALAX, AND COLACE THAT WAS PRESCRIBED FROM THE OFFICE. Forms: Excuse From Work or School, Post Hospital Follow Up Care
[2023-04-22 11:34] VITALS: BP 130/71; PULSE 67; TEMP 98.4
[2023-04-22] MEDS: NS 1,000 ML IV 1,000 ML IV SCH (14:07)
--- NOTE | 2023-04-22 14:44 | RAD ---
EXAM:KUB x-ray one viewHISTORY:ABD PAIN; -COMPARISON:X-ray from previous dayFINDINGS:Mild increased small and large bowel air is diminished from prior study. No evidence of bowel obstruction is seen. Stable phleboliths are seen in the pelvis.IMPRESSION:Mild decrease in air in the nondilated small and large bowel since prior study.THIS IS AN ELECTRONICALLY VERIFIED FINAL [id number]/22/2023 2:41 PM - Electronically signed by Michael Badillo MD
== END 2023-04-22 14:34 | disposition home or self-care (01) ==
LOC: MED/SURG
PROVIDERS: ADMIT Internal Medicine; ATTEND Internal Medicine
DX: K59.09 Other constipation; F41.8 Other specified anxiety disorders; I10 Essential (primary) hypertension; J44.9 Chronic obstructive pulmonary disease, unspecified; R10.84 Generalized abdominal pain; K62.89 Other specified diseases of anus and rectum